=== PATIENT | male | born 1955 | race Caucasian/White ===

== ENCOUNTER 2017-03-18 09:00 | Inpatient (IN) ==
--- NOTE | 2017-03-17 20:04 | Discharge Summary ---
<ErikErin E - Last Filed: 03/17/17 20:00> Date of Encounter: 03/17/17 - Discharge Diagnosis (1) Arthritis of left knee Priority: Primary Status: Chronic (2) HTN (hypertension) Priority: Secondary Status: Chronic Qualifiers: Hypertension type: unspecified Qualified Code(s): I10 - Essential (primary ) hypertension - Discharge Medications Prescriptions: Aspirin Enteric Coated [Aspirin EC] 325 mg PO DAILY 21 Days #21 tablet. OxyCODONE Immed Rel [Roxicodone 5 MG] 5 mg PO Q6HR PRN 7 Days #28 tablet PRN Reason: Pain Home Medications: Losartan [Cozaar] 25 mg PO DAILY 01/14/17 [History] Meloxicam [Mobic] 15 mg PO DAILY 01/14/17 [History] Aspirin Enteric Coated [Aspirin EC] 325 mg PO DAILY 21 Days #21 tablet. [Rx] OxyCODONE Immed Rel [Roxicodone 5 MG] 5 mg PO Q6HR PRN 7 Days #28 tablet [Rx] Allergies/Adverse Reactions: 3 Allergy/AdvReac Type Severity Reaction Status Date / Time No Known Allergies Allergy Verified 03/18/17 09:57 Primary care physician: Kirsty Blandon - Patient Status Disposition: Home, Self-Care Condition: Good - Discharge Instructions Follow Up With: Corwin Sethi MD [Partnered Physician] - 04/15/17 5:35 pm Inna Douglas PAC [Physician Driver] - 03/26/17 9:30 am (& also Thursday , April 03, 2017 @ 08:00 AM. As well as , April 23, 2017 at 01:00 PM) Jac Peña CNP [Advanced Practice Nurse] - Kirsty Blandon MD [Primary Care Provider] - - Hospital Course Hospital course: Mr. Vega is a 61 year old male - Time Spent with Patient Total time spent providing and/or coordinating discharge services: <Corwin Sethi - Last Filed: 03/19/17 07:53> Date of Encounter: 03/19/17 Time of Encounter: 07:53 - Discharge Diagnosis (1) Morbid obesity with BMI of 40.0-44.9, adult Priority: Secondary Status: Chronic (2) Arthritis of left knee Priority: Primary Status: Chronic (3) HTN (hypertension) Priority: Secondary Status: Chronic Qualifiers: Hypertension type: unspecified Qualified Code(s): I10 - Essential (primary ) hypertension (4) Status post total left knee replacement Priority: Primary Status: Acute Primary care physician: Kirsty Blandon - Patient Status Overall status at discharge: patient is progressing back to baseline - Hospital Course Hospital course: Mr. Vega is a 61 year old male Status post total knee replacement. The patient had an uneventful postoperative course. They received antibiotics and physical therapy and were discharged in stable condition. There will follow -up in the office in 2 weeks. - Time Spent with Patient Total time spent providing and/or coordinating discharge services:
[2017-03-18] MEDS ORDERED: CeFAZolin Pre 3,000 MG/100 ML 3,000 MG/100 ML BAG IVPB ONE (09:27)
[2017-03-18] MEDS ORDERED: Ringers Solution, Lactated 1,000 ML IVC SCH ×3 (09:30→13:33)
--- NOTE | 2017-03-18 09:54 | History & Physical Report ---
Date of Encounter: 03/18/17 Time of Encounter: 09:54 24 Hour HP Update - Instructions Instructions: If the History and Physical is less than 30 days old and was completed prior to A.M. admission and or procedure and has NOT been updated on calendar day of procedure please complete this update prior to performing procedure. - Update Patient reports changes in Medical Condition: No Changes in examination, assessment, or condition: No Changes in Medication: No Preop tests/diagnostics Reviewed: Yes Surgery Remains Indicated: Yes Consent for Planned Operative Procedure(s) Verified: Yes - Pre-Operative Checklist Preoperative Checklist Indicated: No Prophylactic Antibiotic Ordered: Yes Is VTE Prophylaxis Indicated?: Yes
[2017-03-18] MEDS ORDERED: *HR* Midazolam HCl 2 MG/2 ML VIAL ONE (10:06)
[2017-03-18] MEDS ORDERED: *HR* FentaNYL (PF) 100 MCG/2 ML VIAL ONE (10:06)
[2017-03-18] MEDS ORDERED: *HR* Propofol 200 MG/20 ML VIAL IVP ONE (10:06)
[2017-03-18] MEDS ORDERED: Lidocaine -MPF 2% 2 ML VIAL ONE (10:07)
--- NOTE | 2017-03-18 10:15 | Anesthesia Evaluation PreOp ---
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 [Rx] OxyCODONE Immed Rel [Roxicodone 5 MG] 5 mg PO Q6HR PRN 7 Days #28 tablet [Rx] 3 Allergy/AdvReac Type Severity Reaction Status Date / Time No Known Allergies Allergy Verified 03/18/17 09:57 - Meds/Allergy Pre-op Review Medications Reviewed: Yes Allergies Reviewed: Yes Beta Blockers on Current Med List: No Anesthesia Results - Labs Laboratory Tests 03/13/17 03/13/17 03/13/17 12:02 12:02 12:02 WBC 5.7 Hgb 14.3 Hct 43.9 Plt Count 213 PT 10.6 INR 1.0 APTT 35.7 Sodium 139 Potassium 4.4 Chloride 111 H Carbon Dioxide 21 BUN 25 Creatinine 0.89 Est GFR ( Amer) > 60 Est GFR (Non-Af Amer) > 60 BUN/Creatinine Ratio 28 H Est Mean Plasma Glucose Hemoglobin A1c 03/13/17 12:02 WBC Hgb Hct Plt Count PT INR APTT Sodium Potassium Chloride Carbon Dioxide BUN Creatinine Est GFR ( Amer) Est GFR (Non-Af Amer) BUN/Creatinine Ratio Est Mean Plasma Glucose 126 Hemoglobin A1c 6.0 H - Imaging EKG: report reviewed, image reviewed (SINUS RHYTHM MINIMAL VOLTAGE CRITERIA FOR LVH, CONSIDER NORMAL VARIANT) Anesthesia Exam Last Vital Signs Temp 98.3 F 03/18/17 09:35 Pulse 87 03/18/17 09:35 Resp 18 03/18/17 09:35 BP 141/89 03/18/17 09:35 Pulse Ox 95 03/18/17 09:35 Weight: 123 kg NPO (# of Hours): > 8 hrs - HEENT Pupil (Motor): Pupils equal, EOMI Mallampati: III Teeth: Poor dentition Oral Opening: Greater than 3 - PERFORATOR LOC: Oriented PERFORATOR Motor: Normal RUE, Normal LUE, Normal RLE, Normal LLE, Normal Face - Cardiac Rhythm: Regular Murmur: None - Pulmonary Breath Sounds: bilateral Clear Respiratory Effort: Symmetrical Anesthesia Assess/Plan ASA Score: 3 Modified [place] Scale for Level of Consciousness: Cooperative, oriented, and tranquil Anesthetic Plan: General, Regional, Precautions (no nephrotoxins - patient only has one kidney) Monitoring Plan: Standard Monitors Recovery Plan: PACU
[2017-03-18] MEDS ORDERED: ROPIVACAINE HCL/PF 0.5% 30 ML VIAL ONE (10:41)
[2017-03-18] MEDS ORDERED: Ethanol\\Acetic Acid\\Na Ace\\Ben 1,000 ML IRRIG.SOLN IR ONE (10:47)
[2017-03-18] MEDS ORDERED: Ondansetron 4 MG/2 ML VIAL IVP ONE (11:02)
[2017-03-18] MEDS ORDERED: Albuterol 2.5 MG/3 ML NEBULIZER IH ONE (11:02)
[2017-03-18] MEDS ORDERED: *HR* Meperidine 25 MG/ML SYRINGE IVP PRN (11:02)
[2017-03-18] MEDS ORDERED: Naloxone 0.4 MG/ML INJ IVP PRN ×2 (11:02→13:33)
--- NOTE | 2017-03-18 11:02 | Anesthesia Procedures ---
Date of Encounter: 03/18/17 Time of Encounter: 11:00 Procedures: Anesthesia - Nerve Block Procedure Date: 03/18/17 Time: 11:00 Surgical Procedure: left tka Checklist: Correct Patient Identifier, Correct procedure, History checked Correct side: Left Blood Thinner: No Monitor Applied: EKG, BP, Pulse Oximetry Supplemental Oxygen via Nasal Cannula (L/min): 2 Sedation: Versed (mg): 2 Sedation: Fentanyl (mcg): 100 Indication: Post Op Analgesia (request per dr myers for post op pain control) Pre-op Neuro Deficits: No Block Type: Femoral, Other (ipack) Sterile Technique: Yes Ultrasound used: Yes Anatomy identified: Yes Visual spread of Local: Yes Neuro Stimulation: Yes Nerve Stimulator Range: >0.4 - 0.6 mA Blood on Needle Aspiration: No Smooth Injection of Local: Yes Pain with Injection of Local: No Prep: Chlorhexadine Needle: 22 x 50 mm Stimuplex Local: Ropivacaine (30 for fem; 30 for ipack) Volume (cc): 60 Number of Attempts: 1 Complications: None/effective block Vitals: Vital Signs/O2 Sat/Glucose, Most Current Temp Pulse Resp BP Pulse Ox 03/18/17 10:38 76 16 141/86 96 03/18/17 09:35 98.3 F 87 18 141/89 95 03/18/17 09:18 98.3 F 87 18 141/89 95 Comments: pt tolerated procedure well. no complications. vss.
[2017-03-18] MEDS ORDERED: Lidocaine -MPF 4% 5 ML AMPUL ONE (11:16)
[2017-03-18] MEDS ORDERED: Ondansetron 4 MG/2 ML VIAL ONE (11:20)
[2017-03-18] MEDS ORDERED: Dexamethasone 4 MG/ML VIAL ONE (11:20)
[2017-03-18] MEDS ORDERED: *HR* HYDROmorphone 2 MG/ML SYRINGE ONE (11:26)
--- NOTE | 2017-03-18 11:55 | Orthopedic Operative Note ---
Date of procedure: 03/18/17 Pre-op diagnosis: Left knee arthritis Post-op diagnosis: same Procedure: Procedure: Left Total knee replacement Estimated blood loss: 400 cc Hardware: Metal and polyethylene replacement. Arthrex Femur: 6 Tibia: 6 PS insert: 11 Patella: 40 Exam Under anesthesia: Loss full extension 20 degrees full flexion and no instability Procedural Notes: Grade 4 arthritic changes medial compartment and patellofemoral joint. Operative procedure: The patient was brought to the operating room and placed on the operating room table. After general anesthesia was administered the operative knee was examined. Findings were noted in the exam under anesthesia. The operative extremity was prepped and draped in sterile surgical fashion. The patient received IV antibiotics prior to skin incision. A standard midline incision was made centered over the patella. The incision was made through the skin and subcutaneous tissue. A medial parapatellar tendon approach was performed. Care was taken to preserve tissue along the medial aspect of the patella. And to protect the patella tendon. The deep MCL was released off the medial tibia. The infra patella fat pad was excised. Knee was brought into flexion. Patient noted to have grade 4 arthritic changes medial compartment and patellofemoral joint. The entry hole was made for the intramedullary femoral guide. The guide was seated in 6 degrees of valgus. Anterior cut was made followed by the distal cut. The ACL the PCL the medial and the lateral menisci were excised. The tibia was subluxed forward. The entry hole was made for the intramedullary tibial guide. Guide was seated to resect 2 mm off the more abnormal side. The knee was brought into flexion the distal femur was sized to a 6. The femoral guide was seated, the anterior cut was made followed by the posterior condylar cut, followed by the chamfer cuts. The finishing guide was seated the box cut was made and the lug holes were drilled. The tibia was sized to a 6, the tibial tray was seated and prepared with the large drill followed by the fin cutter. Trial reduction revealed full extension no varus valgus instability with the appropriate 11 PS Jany. The patella was everted and cut was made at the level of the insertion of the quadriceps and patella tendon. The patella was sized to a 40 the guide was seated and the lug holes are drilled. Trial reduction revealed excellent patella tracking. All trial components were removed all bony surfaces were irrigated. The tibia was cemented first followed by the femur. The 11 PS Jany was seated and the knee was brought into full extension. The patella was cemented and held in place with the patellar holding clamp. After the cement had hardened, the knee sat for 2 minutes with a Betadine saline solution. The PA close the knee. The knee was then irrigated out with 2 L of pulse irrigation. The extensor mechanism was closed with #2 FiberWire suture and #2 PDS suture. The subcutaneous tissue was then irrigated and closed deep with #1 PDS suture superficially with 0 PDS suture and skin was closed with skin nikia. The patient was then placed in a sterile dressing and a postoperative brace extubated and transferred to recovery room in stable condition. Anesthesia: JEREMY Surgeon: Corwin Sethi Personal Fitness Manager: Erin Valencia Condition: stable Disposition: PACU
[2017-03-18] MEDS ORDERED: EPHEDrine 50 MG/ML VIAL ONE (12:06)
[2017-03-18] MEDS: *HR* Labetalol 20 MG/4 ML SYRINGE IVP PRN ×4 (12:44→13:13)
[2017-03-18] MEDS: *HR* HYDROmorphone (PF) 1 MG/ML SYRINGE IVP PRN ×4 (12:44→13:13)
[2017-03-18 13:18] LABS: Hematocrit 41.9 % (37.5-50.1); Hemoglobin 13.6 g/dL (12.9-16.9)
--- NOTE | 2017-03-18 13:30 | Anesthesia Evaluation Post Op ---
Date of Encounter: 03/18/17 Time of Encounter: 13:29 - Vital Signs Vital Signs: Selected Entries 03/18/17 12:59 03/18/17 13:19 Temperature 97.0 F L Pulse Rate 85 Respiratory Rate 12 Blood Pressure 146/106 O2 Sat by Pulse Oximetry 95 Oxygen Flow Rate (LPM) 2 - Lungs Lungs: Clear Ascult./Percussion - Airway Airway: Non-obstructed - Cardiovascular Regular Rate - Mental Status Mental Status: Alert & Oriented, Answers Appropriately - Pain Pain Scale: 2 Pain Scale used: Numeric (1 - 10) - Nausea Vomiting Nausea Vomiting: Not Present - Hydration Hydration: Ice chips, Has not voided - Discharge PostOp Status: Transfer Patient to floor
[2017-03-18] MEDS ORDERED: *HR* HYDROmorphone (PF) 1 MG/ML SYRINGE IVP PRN (13:33)
[2017-03-18] MEDS ORDERED: MOM Conc 10 ML UD.LIQ PO PRN (13:33)
[2017-03-18] MEDS ORDERED: Ondansetron 4 MG/2 ML VIAL IVP PRN (13:33)
[2017-03-18] MEDS ORDERED: Sennosides 8.6 MG TABLET PO PRN (13:33)
[2017-03-18] MEDS ORDERED: Temazepam 15 MG CAPSULE PO PRN (13:33)
[2017-03-18] MEDS ORDERED: *HR* OxyCODONE Immed Rel 5 MG TABLET PO PRN ×2 (13:33)
[2017-03-18] MEDS: ceFAZolin 3,000 MG in D5% in Water 100 ML IVPB SCH ×2 (16:15→23:43)
[2017-03-18] MEDS: *HR* Enoxaparin 30 MG/0.3 ML SYRINGE SQ SCH (17:13)
[2017-03-18] MEDS ORDERED: *HR* Enoxaparin 30 MG/0.3 ML SYRINGE SQ SCH (18:00)
[2017-03-19 04:57] LABS: Hematocrit 37.6 % (37.5-50.1); Hemoglobin 12.6 g/dL (12.9-16.9)
[2017-03-19 05:12] LABS: BUN/Creatinine Ratio 20 (6-26); Blood Urea Nitrogen 20 mg/dL (8-26); Calcium 8.8 mg/dL (8.6-10.8); Carbon Dioxide 22 mEq/L (19-29); Chloride 106 mEq/L (98-109); Glucose 147 mg/dL (70-99); Osmolality,Calculated 289 (280-300); Potassium 4.1 mEq/L (3.5-4.5); Sodium 137 mEq/L (136-145); eGFR For African Americans > 60 (> 60); eGFR For Non-African Americans > 60 (> 60)
[2017-03-19] MEDS: *HR* Enoxaparin 30 MG/0.3 ML SYRINGE SQ SCH (05:23)
[2017-03-19 06:40] VITALS: BP 123/64
--- NOTE | 2017-03-19 07:54 | Orthopedics Progress Note ---
Date of Encounter: 03/19/17 Time of Encounter: 07:54 - Assessment and Plan (1) Morbid obesity with BMI of 40.0-44.9, adult Current Visit: Yes Status: Chronic (2) Arthritis of left knee Current Visit: No Status: Chronic (3) HTN (hypertension) Current Visit: No Status: Chronic Qualifiers: Hypertension type: unspecified Qualified Code(s): I10 - Essential (primary ) hypertension (4) Status post total left knee replacement Current Visit: Yes Status: Acute Subjective Interval history: Patient was seen this morning doing well without complaints. Afebrile vital signs stable. Operative extremity: Neurovascularly intact Dressing clean dry and intact Calves nontender Assessment and plan: Continue with postoperative care Hematocrit 37 discharged today Objective Vital signs: Vital Signs Temp Pulse Resp BP Pulse Ox 03/19/17 06:38 97.9 F 80 20 123/64 95 03/19/17 03:56 97.4 F L 77 18 120/72 96 03/18/17 23:15 97.6 F 91 18 148/94 95 03/18/17 18:44 97.5 F L 94 17 151/86 95 03/18/17 16:50 97.7 F 92 16 146/78 94 03/18/17 15:55 97.6 F 90 16 145/79 95 03/18/17 15:36 88 132/82 95 03/18/17 14:49 97.4 F L 81 16 133/82 96 03/18/17 14:24 97.2 F L 72 14 118/79 98 03/18/17 13:50 97.1 F L 80 14 117/79 95 03/18/17 13:34 97.6 F 87 18 144/93 97 03/18/17 13:29 97.0 F L 79 14 148/95 95 03/18/17 13:19 85 12 146/106 95 03/18/17 13:09 92 14 149/115 98 03/18/17 12:59 97.0 F L 87 12 152/102 97 03/18/17 12:49 81 12 157/103 94 03/18/17 12:39 104 12 174/114 94 03/18/17 12:29 97.1 F L 99 12 144/107 93 03/18/17 10:38 76 16 141/86 96 03/18/17 09:35 98.3 F 87 18 141/89 95 03/18/17 09:18 98.3 F 87 18 141/89 95 Intake and Output 03/18/17 03/18/17 03/19/17 15:59 23:59 07:59 Intake Total 100 / 100 600 / 600 100 / 100 Output Total 400 / 400 1994 700 / 700 Balance -300 / -300 -1395 / -1395 -600 / -600 Intake: IV Fluids 100 / 100 100 / 100 100 / 100 Ancef Premix 3,000 MG/100 ML 3, 100 / 100 000 mg In 100 ml @ 200 mls/hr IVPB PREOP ONE Rx#:[id number] Ancef 3,000 MG In Dextrose 5% 100 / 100 100 / 100 100 ML @ 200 mls/hr IVPB Q8HR GHANSHYAM Rx#:[id number] Oral 0 / 0 500 / 500 Output: Urine 1994 700 / 700 Estimated Blood Loss 400 / 400 Other: Weight 123.377 kg Blood Glucose* 177 - Labs CBC & BMP: 03/19/17 04:25 03/19/17 04:25 Labs: Abnormal lab results Hgb 12.6 g/dL (12.9-16.9) L 03/19/17 04:25 Glucose 147 mg/dL (70-99) H 03/19/17 04:25 POC Glucose 177 (58-89) H 03/19/17 07:00 - VTE Documentation of Mechanical Device: Intermittent pneumatic compression device Consult Discharge Plan - Plan Referrals: Corwin Sethi MD [Partnered Physician] - 04/15/17 5:35 pm Inna Douglas PAC [Physician [facility]] - 03/26/17 9:30 am (& also Thursday @ 08:00 AM. As well as April at 01:00 PM) Jac Peña CNP [Advanced Practice Nurse] - Kirsty Blandon MD [Primary Care Provider] - Prescriptions: Aspirin Enteric Coated [Aspirin EC] 325 mg PO DAILY 21 Days #21 tablet. OxyCODONLalita Immed Rel [Roxicodone 5 MG] 5 mg PO Q6HR PRN 7 Days #28 tablet PRN Reason: Pain
== END 2017-03-19 11:18 | disposition home or self-care (01) | DRG 470 ==
LOC: SAMDAY 09:00 → 3NENU 09:54
PROVIDERS: ADMIT Orthopaedic Surgery; ATTEND Orthopaedic Surgery